=== PATIENT | female | born 1960 | race Two or more races ===

== ENCOUNTER 2017-08-08 11:09 | Observation (INO) | payer BC ==
[~2017-08-08] VITALS: Ht 147.3 cm; Wt 38.5 kg
[~2017-08-08 11:09] MED LIST: AVAPRO300 MG PO; COLBENEMID1 TABLET PO; FLAGYL250 MG PO; JALYN 0.5-0.41 EACH PO; LASIX20 MG PO; LOPRESSOR100 M1 PO; MICROZIDE12.5 MG PO; MUCINEX DM1 TABLET PO; NEXIUM40 MG PO; ZANTAC150 MG PO; ZOCOR20 MG PO
[2017-08-08 11:51] LABS: BASOPHIL (%) 0.7 % (0-1); BASOPHIL COUNT 0.1 K/uL (0-0.1); EOSINOPHIL (%) 1.5 % (0-5); EOSINOPHIL COUNT 0.1 K/uL (0-0.3); HEMATOCRIT 39.4 % (36.0-46.0); HEMOGLOBIN 13.5 G/DL (11.9-15.5); IMMATURE GRANULOCYTE (%) 0.2 % (0.0-0.7); LYMPHOCYTE (%) 23.1 % (15-42); LYMPHOCYTE COUNT 1.9 K/uL (1.0-2.8); MCH 30.3 PG (29.0-34.0); MCHC 34.3 G/DL (30.0-36.0); MCV 88.5 FL (83-99); MONOCYTE (%) 7.5 % (3-12); MONOCYTE COUNT 0.6 K/uL (0-0.8); NEUTROPHIL COUNT 5.5 K/uL (1.8-6.4); PLATELET COUNT 290 K/uL (156-360); RBC DIS.WIDTH-CV 12.5 % (11.8-14.6); RBC DIS.WIDTH-SD 40.5 % (39-53); RED BLOOD COUNT 4.45 M/uL (3.80-5.20); WHITE BLOOD COUNT 8.3 K/uL (4.1-10.2)
[2017-08-08 11:59] LABS: PTT 30.7 SEC (25-37)
[2017-08-08 12:08] LABS: CHLORIDE 105 mEq/L (99-109); POTASSIUM 3.6 mEq/L (3.7-5.4); SODIUM 141 mEq/L (136-147)
[2017-08-08 12:10] LABS: GLUCOSE 118 mg/dL (70-99)
[2017-08-08 12:14] LABS: CREATININE 1.1 mg/dL (0.6-1.3); GFR ESTIMATE (CALCULATED) 55 mL/min/; UREA NITROGEN (BUN) 19 mg/dL (9-23)
[2017-08-08 12:45] LABS: HDL CHOLESTEROL 90 MG/DL (Desirable>=50); LDL CHOLESTEROL 161 mg/dL (Desirable<100); NON-HDL CHOLESTEROL 171 mg/dL (Desirable<160); TOTAL CHOLESTEROL 261 mg/dL (Desirable<200); TRIGLYCERIDES 52 MG/DL (Normal: <150)
[2017-08-08] MEDS ORDERED: DAILY VITE1 EAC1 PO (13:25)
[2017-08-08] MEDS ORDERED: CALCIUM500 M4 PO (13:26)
[2017-08-08] MEDS ORDERED: ASCORBIC ACID100 MG PO (13:26)
[2017-08-08] MEDS ORDERED: EXCEDRIN MIGRA1 EAC3 PO (13:29)
[2017-08-08 14:55] VITALS: BP 111/6
[2017-08-08 19:11] VITALS: BP 112/59
[2017-08-08 23:53] VITALS: BP 109/56
[2017-08-09 03:45] VITALS: BP 110/55; BP 88/55
[2017-08-09 07:30] VITALS: BP 113/60
[2017-08-09] MEDS ORDERED: ASPIR-LOW81 MG PO (11:22)
[2017-08-09] MEDS ORDERED: ATORVASTATIN CA20 MG PO (11:56)
[2017-08-09 14:43] LABS: HEMOGLOBIN A1c (GLYCOHEMOGLOB) 5.3 % (Below 5.7)
== END 2017-08-09 12:30 | disposition home or self-care (01) ==
LOC: EME 11:09 → ENRESERV 12:29 → EDOF 12:36 → 4SOUTH 12:36 → EDOF 12:36 → ENRESERV 13:05 → 4SOUTH 14:44
PROVIDERS: Emergency Medicine
DX: R20.2 Paresthesia of skin (principal); R47.1 Dysarthria and anarthria; G43.909 Migraine, unspecified, not intractable, without status migrainosus; Z80.8 Family history of malignant neoplasm of other organs or systems; Z82.5 Family history of asthma and other chronic lower respiratory diseases; Z88.0 Allergy status to penicillin; Z88.5 Allergy status to narcotic agent
CPT/HCPCS: 70450; 70551; 80048; 80061; 83036; 85025; 85610; 85730; 93005; 93880; 99281; 99285; G0378; J1200; J1644; J2765; J7040